=== PATIENT | female | born 1955 | race Caucasian/White ===

== ENCOUNTER 2018-06-23 11:28 | Outpatient (RCR) | payer SELFPAY | END 2018-06-24 23:59 | disposition home or self-care (01) | LOC: CR 11:28 | PROVIDERS: PCP Family Medicine; Visit Provider Family Medicine | DX: Z51.89 Encounter for other specified aftercare (principal) ==

== ENCOUNTER 2018-07-21 09:00 | Outpatient (RCR) | payer SELFPAY | END 2018-07-24 23:59 | disposition home or self-care (01) | LOC: CR 09:00 | PROVIDERS: PCP Family Medicine; Visit Provider Family Medicine | DX: Z51.89 Encounter for other specified aftercare (principal) ==

== ENCOUNTER 2018-08-22 12:00 | Outpatient (CLI) | payer MEDICARE, SELFPAY | END 2018-08-22 12:20 | PROVIDERS: PCP Family Medicine; Visit Provider Internal Medicine Interventional Cardiology | DX: I25.10 Atherosclerotic heart disease of native coronary artery without angina pectoris (principal); I10 Essential (primary) hypertension; E66.9 Obesity, unspecified; G47.33 Obstructive sleep apnea (adult) (pediatric); J44.9 Chronic obstructive pulmonary disease, unspecified; Z87.891 Personal history of nicotine dependence | CPT/HCPCS: 99214 ==

== ENCOUNTER 2018-08-23 09:00 | Outpatient (RCR) | payer SELFPAY | END 2018-08-24 23:59 | disposition home or self-care (01) | LOC: CR 09:00 | PROVIDERS: PCP Family Medicine; Visit Provider Family Medicine | DX: Z51.89 Encounter for other specified aftercare (principal) ==

== ENCOUNTER 2018-09-22 09:00 | Outpatient (RCR) | payer SELFPAY | END 2018-09-23 23:59 | disposition home or self-care (01) | LOC: CR 09:00 | PROVIDERS: PCP Family Medicine; Visit Provider Family Medicine | DX: I25.10 Atherosclerotic heart disease of native coronary artery without angina pectoris (principal); I25.2 Old myocardial infarction; J44.9 Chronic obstructive pulmonary disease, unspecified; Z51.89 Encounter for other specified aftercare ==

== ENCOUNTER 2018-10-20 15:04 | Outpatient (RCR) | payer SELFPAY | END 2018-10-24 23:59 | disposition home or self-care (01) | LOC: CR 15:04 | PROVIDERS: PCP Family Medicine; Visit Provider Family Medicine | DX: I25.10 Atherosclerotic heart disease of native coronary artery without angina pectoris (principal); I25.2 Old myocardial infarction; J44.9 Chronic obstructive pulmonary disease, unspecified; Z51.89 Encounter for other specified aftercare ==

== ENCOUNTER 2018-11-24 09:00 | Outpatient (RCR) | payer SELFPAY | END 2018-11-24 23:59 | disposition home or self-care (01) | LOC: CR 09:00 | PROVIDERS: PCP Family Medicine; Visit Provider Family Medicine | DX: I25.10 Atherosclerotic heart disease of native coronary artery without angina pectoris (principal); I25.2 Old myocardial infarction; J44.9 Chronic obstructive pulmonary disease, unspecified; Z51.89 Encounter for other specified aftercare ==

== ENCOUNTER 2018-12-22 12:52 | Outpatient (RCR) | payer SELFPAY | END 2018-12-22 23:59 | disposition home or self-care (01) | LOC: CR 12:52 | PROVIDERS: PCP Family Medicine; Visit Provider Family Medicine | DX: I25.10 Atherosclerotic heart disease of native coronary artery without angina pectoris (principal); I25.2 Old myocardial infarction; J44.9 Chronic obstructive pulmonary disease, unspecified; Z51.89 Encounter for other specified aftercare ==

== ENCOUNTER 2019-01-19 09:00 | Outpatient (RCR) | payer SELFPAY | END 2019-01-22 23:59 | disposition home or self-care (01) | LOC: CR 09:00 | PROVIDERS: PCP Family Medicine; Visit Provider Family Medicine | DX: I25.10 Atherosclerotic heart disease of native coronary artery without angina pectoris (principal); I25.2 Old myocardial infarction; J44.9 Chronic obstructive pulmonary disease, unspecified; Z51.89 Encounter for other specified aftercare ==

== ENCOUNTER 2019-01-19 10:17 | Outpatient (CLI) | payer MEDICARE, SELFPAY ==
[2019-01-19 11:22] LABS: Glucose 127 mg/dL (70-100)
== END 2019-01-19 10:37 ==
PROVIDERS: PCP Family Medicine; Visit Provider Family Medicine
DX: E74.39 Other disorders of intestinal carbohydrate absorption (principal)
CPT/HCPCS: 36415; 82947

== ENCOUNTER 2019-01-26 01:25 | Outpatient (CLI) | payer MEDICARE, SELFPAY ==
[2019-01-26 10:52] LABS: Hemoglobin A1C 6.1 % (4.5-6.2)
== END 2019-01-26 01:45 ==
PROVIDERS: PCP Family Medicine; Visit Provider Family Medicine
DX: R73.02 Impaired glucose tolerance (oral) (principal); E74.39 Other disorders of intestinal carbohydrate absorption
CPT/HCPCS: 36415; 83036

== ENCOUNTER 2019-02-21 09:00 | Outpatient (RCR) | payer SELFPAY | END 2019-02-21 23:59 | disposition home or self-care (01) | LOC: CR 09:00 | PROVIDERS: PCP Family Medicine; Visit Provider Family Medicine | DX: I25.10 Atherosclerotic heart disease of native coronary artery without angina pectoris (principal); I25.2 Old myocardial infarction; J44.9 Chronic obstructive pulmonary disease, unspecified; Z51.89 Encounter for other specified aftercare ==

== ENCOUNTER 2019-03-02 01:25 | Outpatient (CLI) | payer MEDICARE, SELFPAY ==
--- NOTE | 2019-03-02 13:00 | DI.MAMMO_ITS ---
SYMPTOMS/DIAGNOSIS: SCREENING, Z12.31 MAMMOGRAMS: Mammograms were interpreted according to the usual protocol including computer analysis with CAD system, tomosynthesis and C view imaging. The breasts are of moderate density with fairly symmetrical distribution of fibroglandular tissue. No dominant mass or clumped microcalcification is identified in either breast. Current examination is compared with the previous examinations including February 2018 and there has been no gross interval change in appearance in comparison with the previous studies. CONCLUSION: No specific evidence of malignancy at this time. Routine screening examinations are suggested at yearly intervals in this age group according to the ACS/ACR guidelines. Category 1, breast density category B. MQSA ASSESSMENT OF FINDINGS: Negative. Category 1. Patient will receive a letter notifying them of these results. BI-RADS category B. There are scattered areas of fibroglandular density.
== END 2019-03-02 01:45 ==
PROVIDERS: PCP Family Medicine; Visit Provider Family Medicine
DX: Z12.31 Encounter for screening mammogram for malignant neoplasm of breast (principal)
CPT/HCPCS: 77063; 77067

== ENCOUNTER 2019-03-23 13:32 | Outpatient (RCR) | payer SELFPAY | END 2019-03-24 23:59 | disposition home or self-care (01) | LOC: CR 13:32 | PROVIDERS: PCP Family Medicine; Visit Provider Family Medicine | DX: I25.10 Atherosclerotic heart disease of native coronary artery without angina pectoris (principal); I25.2 Old myocardial infarction; J44.9 Chronic obstructive pulmonary disease, unspecified; Z51.89 Encounter for other specified aftercare ==

== ENCOUNTER 2019-04-20 11:24 | Outpatient (RCR) | payer SELFPAY | END 2019-04-23 23:59 | disposition home or self-care (01) | LOC: CR 11:24 | PROVIDERS: PCP Family Medicine; Visit Provider Family Medicine | DX: I25.10 Atherosclerotic heart disease of native coronary artery without angina pectoris (principal); I25.2 Old myocardial infarction; J44.9 Chronic obstructive pulmonary disease, unspecified; Z51.89 Encounter for other specified aftercare ==

== ENCOUNTER 2019-05-23 13:27 | Outpatient (RCR) | payer SELFPAY | END 2019-05-24 23:59 | disposition home or self-care (01) | LOC: CR 13:27 | PROVIDERS: PCP Family Medicine; Visit Provider Family Medicine | DX: I25.10 Atherosclerotic heart disease of native coronary artery without angina pectoris (principal); I25.2 Old myocardial infarction; J44.9 Chronic obstructive pulmonary disease, unspecified; Z51.89 Encounter for other specified aftercare ==

== ENCOUNTER 2019-06-20 11:43 | Outpatient (RCR) | payer SELFPAY | END 2019-06-24 23:59 | disposition home or self-care (01) | LOC: CR 11:43 | PROVIDERS: PCP Family Medicine; Visit Provider Family Medicine | DX: I25.10 Atherosclerotic heart disease of native coronary artery without angina pectoris (principal); I25.2 Old myocardial infarction; J44.9 Chronic obstructive pulmonary disease, unspecified; Z51.89 Encounter for other specified aftercare ==

== ENCOUNTER 2019-07-18 11:35 | Outpatient (CLI) | payer MEDICARE, SELFPAY ==
[2019-07-18 13:32] LABS: Calculated LDL 64 mg/dL; Cholesterol 125 mg/dL (50-200); HDL Cholesterol 41 mg/dL (40-60); TSH (W/Ref FT4) 2.84 uIU/mL (0.36-3.74); Triglyceride 100 mg/dL (30-150)
== END 2019-07-18 11:55 ==
PROVIDERS: PCP Family Medicine; Visit Provider Family Medicine
DX: I25.10 Atherosclerotic heart disease of native coronary artery without angina pectoris (principal); D64.9 Anemia, unspecified
CPT/HCPCS: 36415; 80061; 84443

== ENCOUNTER 2019-07-20 11:56 | Outpatient (RCR) | payer SELFPAY | END 2019-07-24 23:59 | disposition home or self-care (01) | LOC: CR 11:56 | PROVIDERS: PCP Family Medicine; Visit Provider Family Medicine | DX: I25.10 Atherosclerotic heart disease of native coronary artery without angina pectoris (principal); I25.2 Old myocardial infarction; J44.9 Chronic obstructive pulmonary disease, unspecified; Z51.89 Encounter for other specified aftercare ==

== ENCOUNTER 2019-07-26 10:53 | Outpatient (CLI) | payer MEDICARE, SELFPAY ==
--- NOTE | 2019-07-26 11:00 | DI.RAD_ITS ---
EXAM: XR KNEE RT 4V AP,LAT,SARWAT,PAT INDICATION: KNEE PAIN. COMPARISON: No exams were available for comparison TECHNIQUE: 2D digital imaging was performed. FINDINGS: There is mild periarticular spurring involving all 3 joint spaces. Joints are otherwise well maintai linda. Bones are intact and normally mineralized. There is an enthesophyte at the superior patella. The soft tissues are unremarkable. IMPRESSION: Mild degenerative changes of the right knee.
== END 2019-07-26 11:13 ==
PROVIDERS: PCP Family Medicine; Referring Provider Family Medicine; Visit Provider Student in an Organized Health Care Education/Training Program
DX: M25.561 Pain in right knee (principal); M17.11 Unilateral primary osteoarthritis, right knee
CPT/HCPCS: 99204; 99215; 73564

== ENCOUNTER 2019-08-24 12:00 | Outpatient (RCR) | payer SELFPAY | END 2019-08-24 23:59 | disposition home or self-care (01) | LOC: CR 12:00 | PROVIDERS: PCP Family Medicine; Visit Provider Family Medicine | DX: I25.10 Atherosclerotic heart disease of native coronary artery without angina pectoris (principal); I25.2 Old myocardial infarction; J44.9 Chronic obstructive pulmonary disease, unspecified; Z51.89 Encounter for other specified aftercare ==

== ENCOUNTER → 2019-08-28 10:26 | Outpatient (BNVA) | payer MEDICARE, SELFPAY | PROVIDERS: PCP Family Medicine; Referring Provider Family Medicine; Visit Provider Internal Medicine Cardiovascular Disease | DX: I25.10 Atherosclerotic heart disease of native coronary artery without angina pectoris (principal); I10 Essential (primary) hypertension; Z87.891 Personal history of nicotine dependence | CPT/HCPCS: 99204; 99215 ==

== ENCOUNTER 2019-08-28 16:11 | Outpatient (CLI) | payer MEDICARE, SELFPAY ==
--- NOTE | 2019-08-28 14:45 | DI.RAD_ITS ---
EXAM: XR SHOULDER RT COMPLETE 2+V INDICATION: PAIN,R52. COMPARISON: No exams were available for comparison TECHNIQUE: 2D digital imaging was performed. FINDINGS: There is mild spurring at the AC joint and glenoid. The humeral head appears normally positioned. No tendon or joint space calcifications are seen. IMPRESSION: Mild degenerative changes.
--- NOTE | 2019-08-28 14:45 | DI.RAD_ITS ---
EXAM: XR CERVICAL SPINE COMP 4-5V INDICATION: PAIN,R52. COMPARISON: No exams were available for comparison TECHNIQUE: 2D digital imaging was performed. FINDINGS: C2-3 through C4-5 disc spaces are well maintained. There are endplate osteophytes projecting anterio rly at C4-5. There is mild narrowing of the C5-6 disc, which also shows anteriorly projecting osteop hytes. There is marked narrowing of the C6-7 disc space. Facet degenerative changes are seen throug hout. There is neural foraminal encroachment on the right at C3-4 and C4-5 and multilevel neural for aminal narrowing on the left. The airway is unremarkable. IMPRESSION: Degenerative disc changes and facet degenerative changes cause bilateral neural foraminal narrowing, left greater right.
[2019-08-28 17:19] LABS: ALT 19 U/L (14-59); AST 16 U/L (15-37); Albumin 3.6 g/dL (3.4-5.0); Alkaline Phosphatase 110 U/L (46-116); Anion Gap 7.8 mmol/L (3-11); BUN 11 mg/dL (7-18); Bilirubin, Total 0.2 mg/dL (0.2-1.0); CO2 29.2 mmol/L (21.0-32.0); CREATININE 1.09 mg/dL (0.55-1.02); Calcium 8.2 mg/dL (8.5-10.1); Chloride 104 mmol/L (98-107); Estimated GFR 50.54 (mL/min/1.73m2); Glucose 93 mg/dL (70-100); Potassium 4.5 mmol/L (3.5-5.1); Sodium 141 mmol/L (136-145); Total Protein 6.8 g/dL (6.4-8.2)
[2019-08-28 17:22] LABS: Hemoglobin A1C 6.2 % (4.5-6.2)
[2019-08-31 05:12] LABS: Vitamin D 25 Total 25.4 ng/ml (30-100)
== END 2019-08-28 16:31 ==
PROVIDERS: PCP Family Medicine; Visit Provider Internal Medicine
DX: M54.2 Cervicalgia (principal); M50.322 Other cervical disc degeneration at C5-C6 level; M50.323 Other cervical disc degeneration at C6-C7 level; M47.812 Spondylosis without myelopathy or radiculopathy, cervical region; E11.9 Type 2 diabetes mellitus without complications; R73.9 Hyperglycemia, unspecified; M25.511 Pain in right shoulder; M19.011 Primary osteoarthritis, right shoulder; E83.51 Hypocalcemia
CPT/HCPCS: 36415; 80053; 82306; 99215; 72050; 73030; 83036

== ENCOUNTER → 2019-09-12 12:50 | Outpatient (BNVA) | payer MEDICARE, SELFPAY | PROVIDERS: PCP Family Medicine; Referring Provider Family Medicine; Visit Provider Student in an Organized Health Care Education/Training Program | DX: M25.561 Pain in right knee (principal); M17.11 Unilateral primary osteoarthritis, right knee; R20.0 Anesthesia of skin; R20.2 Paresthesia of skin; M54.2 Cervicalgia | CPT/HCPCS: 99214 ==

== ENCOUNTER 2019-09-19 15:14 | Outpatient (RCR) | payer SELFPAY | END 2019-09-23 23:59 | disposition home or self-care (01) | LOC: CR 15:14 | PROVIDERS: PCP Family Medicine; Visit Provider Family Medicine | DX: I25.10 Atherosclerotic heart disease of native coronary artery without angina pectoris (principal); I25.2 Old myocardial infarction; J44.9 Chronic obstructive pulmonary disease, unspecified; Z51.89 Encounter for other specified aftercare ==

== ENCOUNTER 2019-10-19 09:00 | Outpatient (RCR) | payer SELFPAY | END 2019-10-24 23:59 | disposition home or self-care (01) | LOC: CR 09:00 | PROVIDERS: PCP Family Medicine; Visit Provider Family Medicine | DX: I25.10 Atherosclerotic heart disease of native coronary artery without angina pectoris (principal); I25.2 Old myocardial infarction; J44.9 Chronic obstructive pulmonary disease, unspecified; Z51.89 Encounter for other specified aftercare ==

== ENCOUNTER 2019-11-14 09:00 | Outpatient (RCR) | payer SELFPAY | END 2019-11-24 23:59 | disposition home or self-care (01) | LOC: CR 09:00 | PROVIDERS: PCP Family Medicine; Visit Provider Family Medicine | DX: I25.10 Atherosclerotic heart disease of native coronary artery without angina pectoris (principal); I25.2 Old myocardial infarction; J44.9 Chronic obstructive pulmonary disease, unspecified; Z51.89 Encounter for other specified aftercare ==

== ENCOUNTER 2019-12-21 09:00 | Outpatient (RCR) | payer SELFPAY | END 2019-12-23 23:59 | disposition home or self-care (01) | LOC: CR 09:00 | PROVIDERS: PCP Family Medicine; Visit Provider Family Medicine | DX: I25.10 Atherosclerotic heart disease of native coronary artery without angina pectoris (principal); I25.2 Old myocardial infarction; J44.9 Chronic obstructive pulmonary disease, unspecified; Z51.89 Encounter for other specified aftercare ==

== ENCOUNTER 2020-01-02 09:00 | Outpatient (RCR) | payer SELFPAY | END 2020-01-23 23:59 | disposition home or self-care (01) | LOC: CR 09:00 | PROVIDERS: PCP Family Medicine; Visit Provider Family Medicine | DX: I25.10 Atherosclerotic heart disease of native coronary artery without angina pectoris (principal); I25.2 Old myocardial infarction; J44.9 Chronic obstructive pulmonary disease, unspecified; Z51.89 Encounter for other specified aftercare ==

== ENCOUNTER 2020-07-09 03:33 | Outpatient (CLI) | payer MEDICARE, SELFPAY ==
[2020-07-09 11:52] LABS: Calculated LDL 71 mg/dL (<100); Cholesterol 131 mg/dL (<200); HDL Cholesterol 40 mg/dL (40-60); TSH (W/Ref FT4) 1.93 uIU/mL (0.36-3.74); Triglyceride 103 mg/dL (<150)
== END 2020-07-09 03:53 ==
PROVIDERS: PCP Family Medicine; Visit Provider Family Medicine
DX: E03.9 Hypothyroidism, unspecified (principal); E78.5 Hyperlipidemia, unspecified; R73.9 Hyperglycemia, unspecified; E83.42 Hypomagnesemia
CPT/HCPCS: 36415; 80061; 83036; 83735; 84443

== ENCOUNTER → 2020-09-02 11:10 | Outpatient (BNVA) | payer MEDICARE, SELFPAY | PROVIDERS: PCP Family Medicine; Referring Provider Family Medicine; Visit Provider Internal Medicine Cardiovascular Disease | DX: I25.10 Atherosclerotic heart disease of native coronary artery without angina pectoris (principal); I10 Essential (primary) hypertension; E03.9 Hypothyroidism, unspecified | CPT/HCPCS: 99213 ==

== ENCOUNTER 2021-01-16 10:26 | Outpatient (CLI) | payer MEDICARE, SELFPAY ==
[2021-01-16 12:39] LABS: Hemoglobin A1C 6.1 % (<5.7)
== END 2021-01-16 10:27 | disposition home or self-care (01) ==
LOC: LOS 10:30
PROVIDERS: PCP Family Medicine; Visit Provider Family Medicine
DX: R73.9 Hyperglycemia, unspecified (principal)
CPT/HCPCS: 36415; 83036

== ENCOUNTER 2021-07-31 03:20 | Outpatient (CLI) | payer MEDICARE, SELFPAY ==
[2021-07-31 10:23] LABS: Calculated LDL 70 mg/dL (<100); Cholesterol 130 mg/dL (<200); Estimated GFR 55.47 (mL/min/1.73m2); HDL Cholesterol 43 mg/dL (40-60); Triglyceride 88 mg/dL (<150)
== END 2021-07-31 03:21 | disposition home or self-care (01) ==
LOC: LBO 03:20
PROVIDERS: PCP Family Medicine; Visit Provider Family Medicine
DX: I10 Essential (primary) hypertension; E78.5 Hyperlipidemia, unspecified; R73.9 Hyperglycemia, unspecified
CPT/HCPCS: 36415; 80061; 82565; 83036

== ENCOUNTER → 2021-09-15 13:53 | Outpatient (BNVA) | payer MEDICARE, SELFPAY | PROVIDERS: PCP Family Medicine; Referring Provider Family Medicine; Visit Provider Internal Medicine Cardiovascular Disease | DX: I25.10 Atherosclerotic heart disease of native coronary artery without angina pectoris (principal); I10 Essential (primary) hypertension | CPT/HCPCS: 99213 ==

== ENCOUNTER 2022-04-13 02:38 | Outpatient (CLI) | payer MEDICARE, SELFPAY ==
[2022-04-13 12:12] LABS: TSH (W/Ref FT4) 1.23 uIU/mL (0.36-3.74)
[2022-04-13 13:36] LABS: Hemoglobin A1C 6.1 % (<5.7)
== END 2022-04-13 02:39 | disposition home or self-care (01) ==
LOC: LBO 02:39
PROVIDERS: PCP Family Medicine; Visit Provider Family Medicine
DX: E03.9 Hypothyroidism, unspecified (principal); R73.09 Other abnormal glucose
CPT/HCPCS: 36415; 83036; 84443

== ENCOUNTER → 2022-09-14 14:07 | Outpatient (BNVA) | payer MEDICARE, SELFPAY | PROVIDERS: PCP Family Medicine; Visit Provider Internal Medicine Cardiovascular Disease | DX: I25.2 Old myocardial infarction (principal); Z95.5 Presence of coronary angioplasty implant and graft; Z98.890 Other specified postprocedural states; I25.10 Atherosclerotic heart disease of native coronary artery without angina pectoris; I10 Essential (primary) hypertension | CPT/HCPCS: 99213 ==

== ENCOUNTER 2022-10-20 03:59 | Outpatient (CLI) | payer MEDICARE, SELFPAY ==
[2022-10-20 13:36] LABS: CREATININE 0.9 mg/dL (0.55-1.02); Estimated GFR 69.64 (mL/min/1.73m2); Vitamin B12 335 pg/mL (193-986)
== END 2022-10-20 04:00 | disposition home or self-care (01) ==
LOC: LOS 03:59
PROVIDERS: PCP Family Medicine; Visit Provider Family Medicine
DX: I10 Essential (primary) hypertension (principal); D64.9 Anemia, unspecified
CPT/HCPCS: 36415; 82565; 82607

== ENCOUNTER 2022-10-23 00:21 | Outpatient (CLI) | payer MEDICARE, SELFPAY ==
--- NOTE | 2022-10-23 10:05 | DI.RAD_ITS ---
Exam(s) XR LUMBAR SPINE COMPLETE EXAM: XR LUMBAR SPINE COMPLETE CLINICAL HISTORY: chronic worsening low back pain with some radiculopathy,m54.9. TECHNIQUE: 2D digital imaging was performed. Five views. COMPARISON: CR LUMBAR SPINE COMPLETE from 03/10/2013 CT ABD PELVIS WITH CONTRAST from 12/13/2013 FINDINGS: BONES: No fracture or destructive lesion. Vertebral body heights are maintained. Severe facet hypert rophy identified throughout, greatest at L3-4 and L4-5, causing mild spondylolisthesis. No spondylol ysis. DISKS: Slight disc space narrowing endplate osteophytes at L1-2. Mild disc space narrowing L4-5. Ap parent bony fusion across the L5-S1 disc. SOFT TISSUE: Right upper and lower quadrant surgical clips. IMPRESSION: Severe facet degenerative changes cause mild spondylolisthesis at L3-4 and L4-5. DATA REPOSITORY: RADIATION DOSE DELIVERED:
== END 2022-10-23 00:41 ==
LOC: DI 00:21
PROVIDERS: PCP Family Medicine; Visit Provider Family Medicine
DX: Z98.1 Arthrodesis status; M51.16 Intervertebral disc disorders with radiculopathy, lumbar region; M43.16 Spondylolisthesis, lumbar region
CPT/HCPCS: 72110

== ENCOUNTER 2023-04-20 00:46 | Outpatient (CLI) | payer MEDICARE, SELFPAY ==
--- NOTE | 2023-04-20 08:00 | DI.US_ITS ---
Exam(s) US LOWER EXTREMITY VENOUS RT EXAM: US LOWER EXTREMITY VENOUS RT CLINICAL HISTORY: fall, on Plavix,RT LEG SWELLING, SOFT TISSUE DISORDER, M79.89. TECHNIQUE: Lower extremity venous ultrasound performed using grayscale, color-flow, and spectral Do ppler analysis. COMPARISON: CR XR KNEE RT 3V AP,LAT,SARWAT from 04/20/2023 FINDINGS: The common femoral, femoral and popliteal veins demonstrate normal compressibility, augmentation, and color Doppler. The posterior tibial veins are patent. No saphenous vein thrombosis or other superfi cial venous thrombosis is seen. No hematoma or Soler's cyst is seen. IMPRESSION: Negative lower extremity ultrasound. No evidence of DVT. DATA REPOSITORY:
--- NOTE | 2023-04-20 08:00 | DI.RAD_ITS ---
Exam(s) XR KNEE RT 3V AP,LAT,SARWAT EXAM: XR KNEE RT 3V AP,LAT,SARWAT CLINICAL HISTORY: fall, on Plavix, RT KNEE PAIN, RT LEG SWELLING,M25.561. TECHNIQUE: 2D digital imaging was performed. Three views. COMPARISON: CR XR KNEE RT 4V AP,LAT,SARWAT,PAT from 07/26/2019 FINDINGS: BONES: No acute fracture is present. No bony destructive lesion is seen. Enthesophyte at quadriceps insertion on the patella. JOINTS: Moderate narrowing medial femoral tibial joint space. Mild to moderate periarticular spurrin g throughout. No joint effusion is seen. SOFT TISSUE: Normal. IMPRESSION: Unremar [id number] degenerative changes. DATA REPOSITORY: RADIATION DOSE DELIVERED:
== END 2023-04-20 01:06 ==
LOC: DI 00:46
PROVIDERS: PCP Family Medicine; Visit Provider Nurse Practitioner Family
DX: M79.89 Other specified soft tissue disorders; M17.11 Unilateral primary osteoarthritis, right knee; M25.561 Pain in right knee; W19.XXXA Unspecified fall, initial encounter
CPT/HCPCS: 73562; 93971

== ENCOUNTER 2023-05-05 02:44 | Outpatient (CLI) | payer MEDICARE, SELFPAY ==
[2023-05-05 07:13] LABS: HCT 32.2 % (36.0-46.0); MCHC 34.2 % (32.0-36.0); MCV 91 fL (80-95); MPV 8.2 fL (8.0-11.0); Platelet Count 373 10^3/uL (130-400); RBC 3.55 10^6/uL (3.93-5.22); RDW 12.5 % (11.7-14.6); RDW-SD 41.8 fL; WBC 9.82 10^3/uL (4.4-10.8)
[2023-05-05 07:54] LABS: Anion Gap 6.9 mmol/L (3-11); BUN 8 mg/dL (7-18); CO2 27.1 mmol/L (21.0-32.0); Calcium 8.2 mg/dL (8.5-10.1); Chloride 100 mmol/L (98-107); Estimated GFR 61.36 (mL/min/1.73m2); Glucose 110 mg/dL (74-106); Potassium 4.7 mmol/L (3.5-5.1); Sodium 134 mmol/L (136-145)
[2023-05-05 08:57] LABS: Calculated LDL 47 mg/dL (<100); Cholesterol 107 mg/dL (<200); HDL Cholesterol 50 mg/dL (40-60); Triglyceride 51 mg/dL (<150)
[2023-05-05 09:49] LABS: Lab Add On Test DONE
[2023-05-05 10:35] LABS: Ferritin 56 ng/mL (8-252); Vitamin B12 370 pg/mL (193-986)
[2023-05-05 10:37] LABS: Iron 37 ug/dL (50-170)
== END 2023-05-05 02:45 | disposition home or self-care (01) ==
LOC: LBO 02:44
PROVIDERS: PCP Family Medicine; Visit Provider Family Medicine
DX: R53.83 Other fatigue (principal); E03.9 Hypothyroidism, unspecified; E87.1 Hypo-osmolality and hyponatremia; E78.5 Hyperlipidemia, unspecified; D64.9 Anemia, unspecified
CPT/HCPCS: 36415; 80048; 80061; 85027; 82607; 82728; 83540; 84443

== ENCOUNTER 2023-05-18 01:57 | Outpatient (CLI) | payer MEDICARE, SELFPAY ==
--- NOTE | 2023-05-18 12:40 | DI.MAMMO_ITS ---
Exam(s) MAMMO SCREENING EXAM: MAMMO SCREENING CLINICAL HISTORY: screening,z12.39. TECHNIQUE: Bilateral full field digital CC and MLO mammographic images were obtained with 3D tomosyn thesis and utilizing computer aided detection (CAD). COMPARISON: Prior mammograms were reviewed. FINDINGS: There has been no significant change in the appearance and distribution of the fibroglandular tissue. Benign-appearing nodules in the right breast again noted. Benign-appearing calcifications in the left breast again noted. There are no new spiculated masses nor malignant-appearing microcalcification groups in either breast There is no significant architectural distortion nor skin thickening-retraction. IMPRESSION: No radiographic evidence of malignancy. Stable benign-appearing findings. BI-RADS Category 2 - Benign Findings Breast Density - Category B - Scattered areas of fibroglandular density Breast density Category C or D implies that the patient has dense breast tissue. Dense breast tissue can make it harder to find cancer on a mammogram. Dense breast tissue is also associated with an incr eased risk of breast cancer. This information about the result of the mammogram report was provided to the patient to raise their awareness. Use this report when you speak with the patient about their risks for breast cancer, which includes their family history. At that time, you may recommend additional screening tests (Ultrasoun d or MRI) as these tests may add significant information. A negative radiographic report should not delay biopsy if a dominant or clinically suspicious mass is present. Up to ten percent of cancers are not identified on mammography. A negative report may reinforce clinical impression. Adenosis and dense breasts may obscure an underlying neoplasm. False positive reports average 6 to 10%. Patient will receive a letter notifying them of these results.
== END 2023-05-18 02:17 ==
LOC: DI 01:57
PROVIDERS: PCP Family Medicine; Visit Provider Family Medicine
DX: Z12.31 Encounter for screening mammogram for malignant neoplasm of breast (principal)
CPT/HCPCS: 77063; 77067

== ENCOUNTER → 2023-07-02 00:41 | Outpatient (CLI) | payer MEDICARE, SELFPAY ==
--- NOTE | 2023-07-02 08:05 | DI.MRI_ITS ---
Exam(s) MR LUMBAR SPINE WO EXAM: MR LUMBAR SPINE WO CLINICAL HISTORY: ongoing back pain despite PT for months,spondylolisthesis,m43.10. TECHNIQUE: Multiplanar multisequence MRI of the Lumbar spine was performed. COMPARISON: CT ABD PELVIS WITH CONTRAST from 12/13/2013 CR XR LUMBAR SPINE COMPLETE from 10/23/2022 FINDINGS: Using similar numbering techniques as on the x-ray of the lumbar spine from 10/23/2022. Bones: The last intervertebral disc space is designated the L5/S1 level for the numbering purpose of this examination. There are endplate osteophytes at several levels in the lumbar spine. Alignment is satisfactory. There is a small hemangioma or fatty rest in the L3 vertebral body. Cord: The conus tip ends at the L1 level. It is of normal size and signal intensity. T12-L1: No disc herniations or bulges are present. No central spinal canal or neural foraminal stenos is. L1-2: There is a mild diffuse disc bulge and facet arthropathy. No central spinal canal stenosis. M ild right and moderate left neural foraminal stenosis. L2-3: There is a mild diffuse disc bulge per there are degenerative changes of the facets. There is mild narrowing of the central spinal canal.There is moderate left and mild right neural foraminal isaias nosis. L3-4: There is a mild diffuse disc bulge. There are marked hypertrophic changes of the facets and li gamentum flavum causing moderately severe central spinal canal stenosis. There is moderately severe bilateral neural foraminal stenosis. L4-5: There is mild anterolisthesis of L4 on L5. There are degenerative changes of the facets. No s ignificant disc herniation is seen. There is no significant central spinal canal stenosis. No right neural foraminal stenosis. Mild left neural foraminal stenosis. L5-S1: There is no disc herniation or disc bulge. No significant central spinal canal or neural fora zara stenosis is present. Soft tissues: The visualized SI joints and sacrum are well maintained. The paraspinal soft tissues ar e unremarkable. There is a 3.1 x 3.5 cm well-circumscribed hypointense lesion in the superior pole of the left kidney best appreciated on the coronal views. It does appear at least partially hyperinten se on the T2 weighted images. This likely reflects a cyst. IMPRESSION: 1. Multilevel degenerative changes in the lumbar spine resulting in central spinal canal and neural f oraminal stenosis. The findings are most marked from L2-3 through L4-L5 as described above. 2. 3.1 x 3.5 cm left renal lesion. Follow-up with renal ultrasound is recommended. Unexpected findings DATA REPOSITORY:
== END ==
PROVIDERS: PCP Family Medicine; Visit Provider Family Medicine
DX: M51.36 Other intervertebral disc degeneration, lumbar region (principal); M99.61 Osseous and subluxation stenosis of intervertebral foramina of cervical region
CPT/HCPCS: 72148

== ENCOUNTER → 2023-07-21 01:32 | Outpatient (CLI) | payer MEDICARE, SELFPAY ==
--- NOTE | 2023-07-21 08:00 | DI.US_ITS ---
Exam(s) US RENAL EXAM: US RENAL CLINICAL HISTORY: cystic lesion seen on MRI,cyst lt kidney, n28.1. TECHNIQUE: Newton scale, color and spectral Doppler were used. COMPARISON: CT ABD PELVIS WITH CONTRAST from 12/13/2013 MR MR LUMBAR SPINE WO from 07/02/2023 FINDINGS: Renal size in cm: Right: 8.9. Left: 9.8. Echogenicity: Normal. Hydronephrosis: No. Cyst or mass: There are 2 well-circumscribed homogeneously anechoic lesions in the superior pole of t he left kidney. The largest measures 4.3 x 2.1 x 3.3 cm. The smaller measures 1.7 x 2.2 x 2.4 cm. These correspond to the finding seen on the MRI examination dated 07/02/2023. Nephrolithiasis: No. Other findings: None. Bladder:The urinary bladder was incompletely distended with only 10 cc of fluid present. This limits evaluation. Ureteral jets: Right: Not visualized on this examination. Left: Not visualized on this examination. Prevoid vol:10 cc Postvoid vol:Not obtained on this examination. Renal color flow: Symmetric and within normal limits. IMPRESSION: Simple left renal cysts. No follow-up is recommended. These correspond to the MR finding seen on th e MRI from 07/02/2023. DATA REPOSITORY:
== END ==
PROVIDERS: PCP Family Medicine; Visit Provider Family Medicine
DX: N28.1 Cyst of kidney, acquired (principal)
CPT/HCPCS: 76770

== ENCOUNTER 2023-09-14 07:52 | Outpatient (CLI) | payer MEDICARE, SELFPAY ==
--- NOTE | 2023-09-14 07:45 | RT.EKG_ITS ---
APPROVED REPORT Exam: Resting ECG Reason for Exam: CAD Patient Location: O HR:62 bpm ECG Measurements Heart Rate 62 AXIS MI 163 P 56 QRSd 91 QRS 6 QT 407 T 26 QTc 414 Conclusion Sinus rhythm...normal P axis, V-rate 50- 99 Low voltage, precordial leads...precordial leads <1.0mV Anteroseptal infarct, old...Q >40mS, V1-V2
== END 2023-09-14 07:53 | disposition home or self-care (01) ==
LOC: DI.CARD 07:53
PROVIDERS: PCP Family Medicine; Visit Provider Internal Medicine Cardiovascular Disease
DX: I25.10 Atherosclerotic heart disease of native coronary artery without angina pectoris (principal)
CPT/HCPCS: 93010

== ENCOUNTER → 2023-09-14 13:12 | Outpatient (BNVA) | payer MEDICARE, SELFPAY | PROVIDERS: PCP Family Medicine; Visit Provider Internal Medicine Cardiovascular Disease ==

== ENCOUNTER 2024-01-20 10:45 | Outpatient (CLI) | payer MEDICARE, SELFPAY ==
[2024-01-20 10:53] VITALS: BP 146/103; PULSE 67; RESP 20; TEMP 36.7; O2SAT 93
[2024-01-20 11:44] VITALS: BP 153/99; PULSE 66; RESP 19; O2SAT 96
--- NOTE | 2024-01-20 11:45 | DI.RAD_ITS ---
Exam(s) XR PAIN CLINIC LUMBAR SP 2V EXAM: XR PAIN CLINIC LUMBAR SP 2V CLINICAL HISTORY: DX: Lumbar spondylosis. TECHNIQUE: Fluoroscopy was provided for the referring physician for guidance with performing pain cl inic injection procedure. COMPARISON: No exams were available for comparison FINDINGS: Please see procedure note for details. Fluoro time: 56 seconds RADIATION DOSE DELIVERED: jono Petty=22.26 mGy
[2024-01-20] MEDS: Nerve Block Tray 1 EACH MC (11:47)
[2024-01-20] MEDS: Bupivacaine 0.5% Pres-Free 10 ML VIAL IJ (11:47)
[2024-01-20] MEDS: Omnipaque 240 MG/ML 50 ML BTL IJ (11:47)
--- NOTE | 2024-01-20 12:10 | PDOC.PAIN ---
Date of service: 01/20/24 Time of Service: 12:10 Pain Managment Procedure Note Procedure Note Procedure Note: PROCEDURE NOTE Bilateral Lumbar Medial Branch Blocks Date of Service: January 20, 2024 Patient: Layla Cardoza Provider: Nestor Garcia DO, MPH Laylalaura Cardoza has been referred to the [facility] for lumbar medial branch blocks. Pre-operative diagnosis: Lumbar Spondylosis without Myelopathy Post-operative diagnosis: Same Pre-procedure pain: VAS= 6/10 COMMENTS: I previously evaluated her in the office and her symptoms have not changes. Mackenzie was interviewed and the medical records were reviewed. There were no medical, pharmacologic, radiographic or other structural contraindications to attempting fluoroscopically guided local anesthetic lumbar medial branch blocks. Risks and potential side effects were discussed. I also discussed the potential benefit(s) of the procedure with Layla, and voiced concerns were addressed. After Layla was completely informed about the procedure, the printed consent form was signed. A standard time-out procedure was performed. Layla was placed in the prone position on the fluoroscopy table. Automated blood pressure cuff and pulse oximeter were applied. The skin entry points for approaching the anatomic target points of the segmental medial branches of bilateral L3,L4,L5 were identified with fluoroscopy and marked. The skin at the target site area was thoroughly prepared with Chlorhexadine. The skin was then draped. Next, a 25 gauge 3.5 spinal needle was placed under fluoroscopic guidance down on to the target point (the articular pillar) for each respective segmental medial branch. Position was confirmed in A/P and lateral views. Aspiration revealed no blood or clear fluid. Next, 0.25ml of omnipaque 240 was injected at each level. No contrast following a vascular or neural pattern was visualized under continuous fluoroscopy. Next, 0.25 ml of preservative-free 0.5% bupivicaine was injected at each level. There was no unusual discomfort expressed by Layla. The needles were withdrawn without difficulty. (49 mls of Omnipaque was wasted) Layla was observed and was without hemodynamic, neurologic, or allergic reactions.? Fluoroscopic images were digitally archived. Provacative testing using the Modified Chavez's facet loading test- Left side Right Side Directly before the block VAS (0-10) = 6/10 VAS (0-10) = 6/10 Five minutes after the block VAS (0-10) = 3/10 VAS (0-10) = 3/10 Percentage relief obtained with this diagnostic block 50% 50% Any improved physical functioning directly after the blocks? Able to move her back with ease. Follow up plans and appointments were discussed with Layla. Layla was instructed to keep careful note of how the usual pain was modified by these injections. Specifically, to keep a pain diary for the next 4 hours using a numeric pain scale of 0-10 and report these results. Post procedure instruction was given as documented in the nursing documentation and having met discharge criteria, the patient was discharged from the [facility]. Based on the medial branches blocked today, if they patient has adequate relief and we are able to proceed to radiofrequency ablation, the treatment should result in the denervation of the bilateral L4-L5 and L5-S1 facet joints. We would expect to denervate a total of 4 facets during the radiofrequency ablation. COMMENTS: No apparent complications. Post-procedure pain: VAS= 3/10 Layla will call back with 0-4 hour post-procedure pain scores. I personally performed the entire procedure. NESTOR GARCIA DO, MPH ABPM&R-subspecialty board certification in Pain Medicine [facility] [facility]
== END 2024-01-20 10:46 | disposition home or self-care (01) ==
LOC: PC 10:45
PROVIDERS: PCP Family Medicine; Visit Provider Preventive Medicine Occupational Medicine
DX: M47.816 Spondylosis without myelopathy or radiculopathy, lumbar region (principal); M54.50 Low back pain, unspecified
CPT/HCPCS: 00123; 64493; 64494; 72100; J0665; Q9967

== ENCOUNTER 2024-02-23 15:35 | Outpatient (CLI) | payer MEDICARE, SELFPAY ==
[2024-02-23 15:45] VITALS: BP 132/93; PULSE 60; RESP 20; TEMP 36.2; O2SAT 97
[2024-02-23 16:24] VITALS: PULSE 61; O2SAT 96
[2024-02-23] MEDS: Bupivacaine 0.5% Pres-Free 10 ML VIAL IJ (16:26)
[2024-02-23] MEDS: methylPREDNISolone ACETATE 40 MG/ML VIAL IJ (16:26)
[2024-02-23] MEDS: Nerve Block Tray 1 EACH MC (16:26)
--- NOTE | 2024-02-23 16:30 | PDOC.PAIN_ITS ---
Date of service: 02/23/24 Time of Service: 16:33 US Guided Nerve Blocks Procedure Performed Left Lateral Femoral Cutaneous Nerve Block Pre-Procedural Evaluation No skin abnormalities at the proposed injection site. Referral Patient has been referred to the [facility] for Left Lateral Femoral Cutaneous Nerve Block for a chief complaint of Left anterior thigh pain Pre-Procedural Pain Score 6/10 Reason for Exam Left anterior thigh burning Patient Interview Patient was interviewed and medical record reviewed: Yes There were no contraindications to performing an US guided procedure. Risks,expected side effects, potential benefits were reviewed. The patient consent form was signed and witnessed. Standard time out procedure was performed. Patient Safety No skin abnormalities at the proposed injection site. Procedure Description No sedation given for the procedure Patient was placed in the supine position and the following monitors: Pulse Ox applied. Pre-procedure ultrasound scanning perfomed using a Linear 9 MHz probe Site Preparation Chloroprep Local Anesthesia of Lidocaine 2%. A 21 G 3.5 Pajunk ultrasound needle was placed under live US guidance using an in plane approach to the target area. the following meds: Bupivacaine 0.5% and Depo-Medrol 40mg per cc were used. Total of injectate/medication mixture note: 1 cc of Depomedrol followed by 2 cc of 0.5% Bupivacaine Negative aspiration for blood. Borger were removed without difficulty. Ultrasound images captured and stored. Patient Mental Status Patient was alert during procedure. Vital Signs Vital signs were stable throughout the procedure and recorded by nursing. Follow Up/Discharge Follow up plans and appointments were discussed with patient. Post procedure instruction was given as documented in nursing documentation. Discharge criteria met and discharged from the [facility]agment Center: Yes Post Procedure Post Procedure Pain: 0/10 Patient tolerated procedure well Procedure outcome: Successful Lateral Femoral Cutaneous Nerve Block
== END 2024-02-23 15:36 | disposition home or self-care (01) ==
LOC: PC 15:36
PROVIDERS: PCP Family Medicine; Visit Provider Preventive Medicine Occupational Medicine
DX: G57.12 Meralgia paresthetica, left lower limb (principal)
CPT/HCPCS: 64447; J0665; J1010

== ENCOUNTER 2024-04-11 10:18 | Outpatient (CLI) | payer MEDICARE, SELFPAY ==
[2024-04-11 10:29] VITALS: BP 124/91; PULSE 58; RESP 20; TEMP 36.2; O2SAT 99
[2024-04-11 11:05] VITALS: BP 141/92; PULSE 57; RESP 19; O2SAT 97
--- NOTE | 2024-04-11 11:05 | DI.RAD_ITS ---
Exam(s) XR PAIN CLINIC SACRIOILIAC 2V EXAM: XR PAIN CLINIC SACRIOILIAC 2V CLINICAL HISTORY: DX: Sacroiliac joint dysfunction TECHNIQUE: 2D and realtime digital imaging was performed. Radiologist not present. CONTRAST MATERIAL: None. COMPARISON: No exams were available for comparison FINDINGS: Fluoroscopy was provided for pain management therapy. Sacroiliac injections Please refer to procedure report or details. Radiation Exposure Index: Ka,r=11.98 mGy IMPRESSION: As above. RADIATION DOSE DELIVERED:
[2024-04-11] MEDS: Omnipaque 240 MG/ML 50 ML BTL IJ (11:07)
[2024-04-11] MEDS: Nerve Block Tray 1 EACH MC (11:07)
[2024-04-11] MEDS: methylPREDNISolone ACETATE 80 MG/ML VIAL IJ (11:08)
--- NOTE | 2024-04-11 12:05 | PDOC.PAIN_ITS ---
Date of service: 04/11/24 Time of Service: 11:31 Pain Managment Procedure Note Procedure Note Procedure Note: PROCEDURE NOTE BILATERAL INTRA-ARTICULAR SACROILIAC JOINT INJECTION Date of Service: April 11, 2024 Patient: Layla Cardoza Provider: Kimo Garcia DO, MPH COMMENTS: I previously evaluated the patient in the office and their symptoms in relation to the sacroiliac joint pain have remained the same. Pre-operative diagnosis: Sacroiliac joint dysfunction Post-operative diagnosis: Same Pre-procedure pain: VAS= 4/10 Layla Cardoza has been referred to our [facility] for a Bilateral intra-articular Sacroiliac joint injection. Layla was interviewed and the medical record reviewed. There were no medical, pharmacologic, radiographic or other structural contraindications to attempting a fluoroscopically-guided, contrast-enhanced, intra-articular Sacroiliac joint injection. The risks, benefits, and potential side effects of this procedure were reviewed with the patient. Questions and concerns were addressed. After it was clear that Layla was fully informed about the procedure, the printed consent form was signed by the patient and myself. Layla was placed in the prone position on the fluoroscopy table and an automated blood pressure cuff, 3 lead EKG, and pulse oximeter were applied. The skin entry point for approaching the Left sacroiliac joint was identified under the most advantageous fluoroscopic view and marked. Following thorough Chlorhexadine preparation of the skin and draping with sterile surgical drapes, 2 mls of 1% lidocaine was infiltrated into the skin at the entry point and the surrounding subcutaneous tissues. Next, a 3.5 22G spinal needle was placed under fluoroscopic guidance into the Left sacroiliac joint. Intra-articular placement was confirmed by a clear arthrogram resulting from the injection of 0.25ml of Omnipaque-240. Next, 1 ml of Depo- Medrol 40 mg/ml was injected intra-articularly with an initial reproduction of a significant component of the usual pain. This was followed with 1 ml of 1% Lidocaine. The needle was then removed without difficulty. (49 ml of Omnipaque-240 was wasted). The exact procedure was completed on the opposite sacroiliac joint. Layla's vital signs were stable throughout the procedure and were as recorded in nursing records. Follow up plans and appointments were discussed with Layla. Post procedure instructions were given as documented in nursing records. Having met discharge criteria, Layla was discharged from the [facility]. COMMENTS: Post-procedure pain: VAS= 4/10. If the patient receives at least 50% improvement in pain and/or function for at least 3 months, this procedure can be repeated if needed. I personally performed this entire procedure. KIMO GARCIA DO, MPH ABPMR-subspecialty board certification in Pain Medicine [facility]
== END 2024-04-11 10:19 | disposition home or self-care (01) ==
LOC: PC 10:18
PROVIDERS: PCP Family Medicine; Visit Provider Preventive Medicine Occupational Medicine
DX: M54.50 Low back pain, unspecified (principal); M46.1 Sacroiliitis, not elsewhere classified
CPT/HCPCS: 27096; 72200; J1010; Q9967

== ENCOUNTER 2024-06-05 03:45 | Outpatient (CLI) | payer MEDICARE, SELFPAY ==
[2024-06-05 12:14] LABS: HCT 35.5 % (36.0-46.0); HGB 12.2 g/dL (11.2-15.7); MCHC 34.4 % (32.0-36.0); MCV 90 fL (80-95); MPV 8.1 fL (8.0-11.0); Platelet Count 366 10^3/uL (130-400); RBC 3.94 10^6/uL (3.93-5.22); RDW 11.9 % (11.7-14.6); RDW-SD 39.3 fL; WBC 5.78 10^3/uL (4.4-10.8)
[2024-06-05 13:40] LABS: Iron 75 ug/dL (50-170); Total Iron Binding Capacity 318 ug/dL (250-450); Transferrin Sat 24 % (15-50)
[2024-06-05 14:04] LABS: ALT 23 U/L (14-59); AST 14 U/L (15-37); Albumin 3.9 g/dL (3.4-5.0); Alkaline Phosphatase 84 U/L (46-116); Anion Gap 7.6 mmol/L (3-11); BUN 4 mg/dL (7-18); Bilirubin, Total 0.43 mg/dL (0.2-1.0); CO2 30.4 mmol/L (21.0-32.0); CREATININE 0.8 mg/dL (0.55-1.02); Calcium 8.5 mg/dL (8.5-10.1); Chloride 97 mmol/L (98-107); Estimated GFR 79.71 (mL/min/1.73m2); Glucose 97 mg/dL (74-106); Potassium 4.2 mmol/L (3.5-5.1); Sodium 135 mmol/L (136-145); TSH (W/Ref FT4) 1.49 uIU/mL (0.36-3.74); Total Protein 7.3 g/dL (6.4-8.2); Vitamin B12 688 pg/mL (193-986)
== END 2024-06-05 03:46 | disposition home or self-care (01) ==
LOC: LBO 03:45
PROVIDERS: PCP Family Medicine; Visit Provider Family Medicine
DX: E03.9 Hypothyroidism, unspecified (principal); D64.9 Anemia, unspecified; R10.9 Unspecified abdominal pain; R53.83 Other fatigue
CPT/HCPCS: 36415; 80053; 85027; 82607; 83540; 83550; 84443

== ENCOUNTER 2024-06-08 02:21 | Outpatient (CLI) | payer MEDICARE, SELFPAY ==
--- NOTE | 2024-06-08 11:30 | DI.US_ITS ---
Exam(s) US LOWER EXTREMITY VENOUS LT EXAM: US LOWER EXTREMITY VENOUS LT CLINICAL HISTORY: ? DVT, lt leg swelling, m79.89 TECHNIQUE: Left lower extremity venous ultrasound performed using grayscale, color-flow, and spectra l Doppler analysis. COMPARISON: No exams were available for comparison FINDINGS: The left common femoral, femoral and popliteal veins demonstrate normal compressibility, augmentation , and color Doppler. The proximal posterior tibial veins are patent. The saphenofemoral junction is unremarkable. There is no evidence of a Soler cyst. There is edema seen in the soft tissues of the lower extremity. IMPRESSION: No evidence of a left lower extremity DVT. DATA REPOSITORY:
== END 2024-06-08 02:41 ==
LOC: DI 02:21
PROVIDERS: PCP Family Medicine; Visit Provider Nurse Practitioner Family
DX: M79.89 Other specified soft tissue disorders (principal)
CPT/HCPCS: 93971

== ENCOUNTER 2024-06-15 02:21 | Outpatient (CLI) | payer MEDICARE, SELFPAY ==
--- NOTE | 2024-06-15 12:32 | DI.MAMMO_ITS ---
Exam(s) MAMMO SCREENING EXAM: MAMMO SCREENING CLINICAL HISTORY: screening,z12.39 TECHNIQUE: Mammograms were interpreted according to the usual protocol including computer analysis w [employer] CAD system, tomosynthesis and C-view imaging. COMPARISON: 2014 through 2022 FINDINGS: The breasts are composed of mainly fatty density , Breast Density category A. No suspicious masses or suspicious microcalcifications are seen. Benign-appearing secretory type autumn cifications in the upper outer quadrant of the left breast. No skin thickening or abnormal axillary lymph nodes are seen. There has been no significant change from prior exams. IMPRESSION: BI-RADS Category 2 - Benign Findings Yearly screening mammography is recommended. Breast Density - Category A, fatty density. A negative radiographic report should not delay biopsy if a dominant or clinically suspicious mass is present. Up to ten percent of cancers are not identified on mammography. A negative report may reinforce clinical impression. Adenosis and dense breasts may obscure an underlying neoplasm. False positive reports average 6 to 10%. Patient will receive a letter notifying them of these results.
== END 2024-06-15 02:41 ==
LOC: DI 02:21
PROVIDERS: PCP Family Medicine; Visit Provider Family Medicine
DX: Z12.31 Encounter for screening mammogram for malignant neoplasm of breast (principal)
CPT/HCPCS: 77063; 77067

== ENCOUNTER 2024-06-19 03:28 | Outpatient (CLI) | payer MEDICARE, SELFPAY ==
[2024-06-20 20:11] LABS: Hepatitis C Ab w Rflx HCV PCR Negative (Negative)
== END 2024-06-19 03:29 | disposition home or self-care (01) ==
LOC: LBO 03:29
PROVIDERS: PCP Family Medicine; Visit Provider Family Medicine
DX: Z11.59 Encounter for screening for other viral diseases (principal)
CPT/HCPCS: 36415; 86803

== ENCOUNTER → 2024-09-12 13:20 | Outpatient (BNVA) | payer MEDICARE, SELFPAY | PROVIDERS: PCP Family Medicine; Visit Provider Internal Medicine Cardiovascular Disease | DX: I25.10 Atherosclerotic heart disease of native coronary artery without angina pectoris (principal); I10 Essential (primary) hypertension | CPT/HCPCS: 99213 ==

== ENCOUNTER 2025-05-10 16:14 | Emergency (ER) | payer MEDICARE, SELFPAY ==
--- NOTE | 2025-05-10 16:15 | DI.RAD_ITS ---
Exam(s) XR WRIST RT COMPLETE EXAM: XR WRIST RT COMPLETE CLINICAL HISTORY: fall and pain. TECHNIQUE: 2D digital imaging was performed. COMPARISON: No exams were available for comparison FINDINGS: 3 views There is an acute impacted fracture of the distal radius with some dorsal angulation evident. Fracture appears to violate the radiocarpal joint space. There is also an avulsed fracture of the ulnar styloid. Scaphoid and scapholunate distance are normal. There is no evidence of carpal dislocation. IMPRESSION: Fractures of distal radius and ulnar styloid as described above. DATA REPOSITORY: RADIATION DOSE DELIVERED:
[2025-05-10 16:16] VITALS: BP 158/90; PULSE 75; RESP 18; TEMP 36.4; O2SAT 98
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
[2025-05-10] MEDS: MORPHine 4 MG/ML SYR IM (17:56)
[2025-05-10 18:40] VITALS: PULSE 64; O2SAT 98
[2025-05-10] MEDS: Bupivacaine 0.5% Pres-Free 30 ML VIAL IJ (19:06)
[2025-05-10] MEDS: Lidocaine 2% Multi-Dose 20 ML VIAL IJ (19:06)
--- NOTE | 2025-05-10 19:16 | DI.RAD_ITS ---
Exam(s) XR WRIST RT COMPLETE EXAM: XR WRIST RT COMPLETE CLINICAL HISTORY: Post-Reduction. TECHNIQUE: 2D digital imaging was performed. COMPARISON: No exams were available for comparison FINDINGS: Three in cast post reduction views Performed post closed reduction. Previously described fractures of distal radius and ulnar styloid are again noted. There is now less dorsal angulation at the impacted distal radial fracture site IMPRESSION: Improvement in the amount of dorsal angulation at the distal radius fracture site when compared to pre reduction images. DATA REPOSITORY: RADIATION DOSE DELIVERED:
[2025-05-10] MEDS: traMADol 50 MG TAB 200 MG PO (19:58)
[2025-05-10 20:00] VITALS: BP 135/74; PULSE 64; RESP 15; O2SAT 98
--- NOTE | 2025-05-10 20:32 | DI.VRAD_ITS ---
PROCEDURE INFORMATION: Exam: XR Right Wrist Exam date and time: 05/10/2025 7:09 PM Age: 69 years old Clinical indication: Other: Post-reduction TECHNIQUE: Imaging protocol: Radiologic exam of the right wrist. Views: 3 or more views. COMPARISON: CR XR WRIST RT COMPLETE 05/10/2025 4:40 PM FINDINGS: Bones/joints: There has been mild reduction of the fracture of the distal radius and placement of the patient's wrist in a fiberglass cast. Ulnar styloid fracture is noted again. Soft tissues: Normal. IMPRESSION: As above. Dictated and Authenticated by: Percy Stuart MD. Orderin Samaria Holt MD
== END 2025-05-10 20:00 | disposition home or self-care (01) ==
PROVIDERS: Emergency Provider Emergency Medicine Emergency Medical Services; PCP Family Medicine
DX: S52.591A Other fractures of lower end of right radius, initial encounter for closed fracture (principal); S52.611A Displaced fracture of right ulna styloid process, initial encounter for closed fracture; E03.9 Hypothyroidism, unspecified; I25.10 Atherosclerotic heart disease of native coronary artery without angina pectoris; I25.2 Old myocardial infarction; E78.5 Hyperlipidemia, unspecified; I10 Essential (primary) hypertension; Z79.82 Long term (current) use of aspirin; Z79.02 Long term (current) use of antithrombotics/antiplatelets; Z87.891 Personal history of nicotine dependence; W18.39XA Other fall on same level, initial encounter
CPT/HCPCS: 96372; 99283; 25605; 73110; J0665; J2003; J2270

== ENCOUNTER 2025-05-12 19:46 | Emergency (ER) | payer MEDICARE, SELFPAY ==
[2025-05-12 19:51] VITALS: BP 149/70; PULSE 73; RESP 18; O2SAT 98
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
== END 2025-05-12 20:26 | disposition home or self-care (01) ==
LOC: ER 20:30
PROVIDERS: Emergency Provider Physician Assistant; PCP Family Medicine
DX: M25.531 Pain in right wrist (principal)
CPT/HCPCS: 99283 ×2

== ENCOUNTER 2025-05-16 10:11 | Outpatient (CLI) | payer MEDICARE, SELFPAY ==
--- NOTE | 2025-05-16 09:30 | DI.RAD_ITS ---
Exam(s) XR WRIST RT LIMITED EXAM: XR WRIST RT LIMITED INDICATION: F/U R WRIST FX. COMPARISON: CR,XR XR WRIST RT COMPLETE from 05/10/2025 CR XR WRIST RT COMPLETE from 05/10/2025 TECHNIQUE: 2D digital imaging was performed. Two views. FINDINGS: A cast is in place which partially obscures the bony detail. There has been no change in the alignment of the distal radial and ulnar styloid fractures. DATA REPOSITORY: RADIATION DOSE DELIVERED:
== END 2025-05-16 10:12 | disposition home or self-care (01) ==
LOC: DIORS 10:11
PROVIDERS: PCP Family Medicine; Referring Provider Family Medicine; Visit Provider Student in an Organized Health Care Education/Training Program
DX: S52.611A Displaced fracture of right ulna styloid process, initial encounter for closed fracture (principal); S52.501A Unspecified fracture of the lower end of right radius, initial encounter for closed fracture; W19.XXXA Unspecified fall, initial encounter
CPT/HCPCS: 99214; 73100

== ENCOUNTER 2025-05-22 15:30 | Outpatient (CLI) | payer MEDICARE, SELFPAY ==
--- NOTE | 2025-05-22 13:45 | DI.RAD_ITS ---
Exam(s) XR WRIST RT LIMITED EXAM: XR WRIST RT LIMITED CLINICAL HISTORY: F/U FRACTURE. TECHNIQUE: 2D digital imaging was performed. COMPARISON: CR,XR XR WRIST RT COMPLETE from 05/10/2025 CR XR WRIST RT LIMITED from 05/16/2025 FINDINGS: Two views Cast material is been removed. The fractured distal radius and ulnar styloid are again noted, still visible. Mild dorsal angulation again noted. There is no significant ulnar variance. No scaphoid fracture. No carpal dislocation. IMPRESSION: Stable appearance. No further displacement. DATA REPOSITORY: RADIATION DOSE DELIVERED:
== END 2025-05-22 15:31 | disposition home or self-care (01) ==
PROVIDERS: PCP Family Medicine; Referring Provider Family Medicine; Visit Provider Physician Assistant
DX: S52.501A Unspecified fracture of the lower end of right radius, initial encounter for closed fracture (principal); S52.611A Displaced fracture of right ulna styloid process, initial encounter for closed fracture; X58.XXXD Exposure to other specified factors, subsequent encounter
CPT/HCPCS: 99214; 73100

== ENCOUNTER 2025-05-23 10:48 | Day surgery (SDC) | payer MEDICARE, SELFPAY ==
[2025-05-23] VITALS (18 sets, daily range): BP systolic 126–163; BP diastolic 58–79; PULSE 57–65; RESP 12–23; TEMP 36–36.3; O2SAT 94–100; BMI 38.6
--- NOTE | 2025-05-23 09:27 | W.ANESPRE ---
General Info Date of Service Date Performed: 05/23/25 Height: 5 ft 1.75 in Weight: 95.1 kg Body Mass Index (BMI): 38.6 Surgical Procedure: Operation Date: 05/23/25 13:10 Proposed Procedure Side Surgeon p ORIF R wrist fracture Right Romulo Chavez MD Meds Allergies and Home Medications Allergies Allergy/AdvReac Type Severity Reaction Status Date / Time methohexital Allergy HIVES Verified 05/23/25 11:06 Home Medication ?Medication ?Instructions ?Recorded glucosamine sulfate 500 mg capsule 500 mg PO BID 01/05/13 aspirin 81 mg tablet,delayed 81 mg PO DAILY 12/26/13 release cholecalciferol (vitamin D3) 50 2,000 unit PO DAILY 09/20/19 mcg (2,000 unit) tablet omega 8-lrq-foi-fish oil 60 mg-90 1 cap PO DAILY 08/08/21 mg-500 mg capsule (Fish Oil) magnesium 200 mg tablet 200 mg PO DAILY 11/29/23 duloxetine 30 mg capsule,delayed 30 mg PO DAILY #90 caps 06/13/24 release (Cymbalta) aripiprazole 15 mg tablet 15 mg PO DAILY #90 tabs 10/03/24 mirabegron 50 mg tablet,extended 50 mg PO DAILY #90 tabs 10/03/24 release 24 hr terbinafine HCl 250 mg tablet 250 mg PO DAILY #7 tabs 10/03/24 amlodipine 2.5 mg tablet 5 mg (2 x 2.5 mg) PO DAILY #180 04/03/25 tabs atorvastatin 80 mg tablet 80 mg PO DAILY #90 tabs 04/03/25 clopidogrel 75 mg tablet 75 mg PO DAILY #90 tabs 04/03/25 duloxetine 60 mg capsule,delayed 60 mg PO DAILY #90 caps 04/03/25 release gabapentin 100 mg capsule 100 - 200 mg (1 - 2 x 100 mg) PO 04/03/25 BID #120 caps levothyroxine 75 mcg tablet 75 mcg PO DAILY #90 tabs 04/03/25 metformin 500 mg tablet,extended 500 mg PO DAILY #90 tabs 04/03/25 release 24 hr metoprolol succinate 100 mg 100 mg PO DAILY #90 tabs 04/03/25 tablet,extended release 24 hr pantoprazole 40 mg tablet,delayed 40 mg PO DAILY #90 tabs 04/03/25 release acetaminophen 500 mg tablet 1,000 mg (2 x 500 mg) PO TID #90 05/23/25 tabs ibuprofen 600 mg tablet 600 mg PO TID PRN pain #90 tabs 05/23/25 oxycodone 5 mg tablet 5 mg PO Q4H PRN pain #12 tabs 05/23/25 Current Visit Medications: Current Medications Generic Name Dose Route Start Last Admin Trade Name Darwinq PRN Reason Stop Dose Admin Acetaminophen 1,000 mg 05/23/25 06:00 Acetaminophen 500 Mg Tab PO 05/23/25 23:59 PREOP KEI Celecoxib 400 mg 05/23/25 06:00 Celecoxib 200 Mg Cap PO 05/23/25 23:59 PREOP KEI Ringer's Solution 1,000 mls @ 80 mls/hr 05/23/25 06:00 IV 05/23/25 23:59 INFUSION KEI Cefazolin Sodium/Dextrose 2 gm in 50 mls @ 100 mls/hr 05/23/25 06:00 Ancef Duplex IVPB 05/23/25 23:59 PREOP KEI Tranexamic Acid/Sodium Chloride 1,000 mg in 100 mls @ 600 mls/hr 05/23/25 06:00 IVPB 05/23/25 23:59 PREOP KEI IV Miscellaneous Supplies 1 each 05/23/25 06:00 Iv Access IV 05/23/25 23:59 DIRECTED KEI Sodium Chloride 0 ml 05/23/25 06:00 Normal Saline Flush 10 Ml Syr IV 05/23/25 23:59 PRN PRN Sodium Chloride 0 ml 05/23/25 06:00 Normal Saline 10 Ml Vial IJ 05/23/25 23:59 DIRECTED PRN Sterile Water 0 ml 05/23/25 06:00 Water,Injection,Sterile 10 Ml Vial IJ 05/23/25 23:59 DIRECTED PRN PFSH Active Problems Active Problems: Problem Status Onset Code Fracture of right ulnar styloid Acute S52.611A Distal radius fracture, right Acute S52.501A Postmenopausal Acute Z78.0 Right wrist pain Acute M25.531 Closed fracture distal radius and ulna Acute S52.509A, S52.609A Fracture of right wrist Acute S62.101A Onychomycosis Acute B35.1 Left leg cellulitis Acute L03.116 Left leg swelling Acute M79.89 Sacroiliac joint dysfunction of both sides Acute M53.3 Lateral cutaneous nerve of thigh syndrome Acute G57.10 Lumbosacral spondylosis without myelopathy Acute M47.817 Cyst of left kidney Acute N28.1 Acquired spondylolisthesis Acute M43.10 Acute appendicitis with rupture Acute 12/13/13 K35.2 S/P appendectomy Acute 12/13/13 Z90.49 ASCVD (arteriosclerotic cardiovascular disease) Acute 12/15/13 I25.10 Anemia Acute 01/10/15 D64.9 Arthritis Acute 03/10/13 M19.90 Depressive disorder Acute 12/20/07 F32.9 Hyperlipidemia Acute E78.5 Hypothyroidism Acute 05/23/14 E03.9 Obstructive sleep apnea Acute 09/18/14 G47.33 Sciatica Acute 12/15/13 M54.30 Status post tonsillectomy and adenoidectomy Acute Z90.89 Status post cholecystectomy Acute Z90.49 Impetigo Acute 09/23/02 L01.00 Essential hypertension Acute 12/13/13 I10 Edema Acute R60.9 Diarrhea Acute R19.7 Abnormal glandular Papanicolaou smear of vagina Acute R87.629 Chronic pain of right knee Acute M25.561, G89.29 Arthritis of right knee Acute M17.11 Cervical spine arthritis with nerve pain Acute M47.812, M79.2 Tremor Acute R25.1 Well adult Acute Urge incontinence Acute N39.41 Glucose intolerance Acute E74.39 Low back pain Acute M54.50 COVID-19 Acute ~12/14/ U07.1 Right knee pain Acute M25.561 Right leg swelling Acute M79.89 Medical History Medical History Obesity OR (myocardial infarction) Hypothyroidism ASCVD (arteriosclerotic cardiovascular disease) GISEL (obstructive sleep apnea) Surgical History Surgical History Tonsillectomy and adenoidectomy Abdominal hysterectomy Coronary Stent 2014 Colonoscopy - MAC (03/07/18) Cholecystectomy Appendectomy Tobacco Smoking/Tobacco Use Status: Former Tobacco Use Passive smoking exposure: Yes Second hand exposure: Yes Alcohol Alcohol Intake: current Alcohol intake frequency: holidays/special occasions only Alcohol type: hard liquor Substance Use Substance use: Daily Substance use type: marijuana Details: last smoked on 04/10/24 Anesthesia Assessment and Plan Anesthesia History Personal History: No History of Anesthesia Complications Family History: No Family History of Anesthesia Complications Exercise Tolerance Exercise Tolerance: Metabolic Equivalents>4 Cardiac & Pulmonary Exam Cardiac Exam: Normal S1/S2 Heart Sounds Pulmonary Exam: Clear Bilateral Breath Sounds Implantable Cardiac Device Does patient have a Pacemaker or an ICD?: No Airway Exam Known Difficult Airway: No Mallampati Class: 4 Mouth Opening: Narrow (< 3cm) Thyromental Distance: Less than 3 cm Neck Range of Motion: Limited ROM Neck Circumference: Thick Teeth Condition: Normal Dentition ASA Classification ASA Score: ASA 3 Emergency Case?: No NPO Status NPO Status: NPO Clears >2 hours, Solids >8 hours Anesthesia Plan Resuscitation Status: Full Code Anesthesia Technique: General Anesthesia Airway Planned: LMA Monitors Used: Standard Monitors Preoperative Comments:: 69 yo female with a radius fracture for ORIF. Sig PMHx: HTN (amlodipine, metoprolol), (ASCVD/OR (2014 stents x 2 to LAD, chronic terminal circ occlusion, 70% RCA. Had cardiogenic shock with IABP), GISEL (no CPAP), GERD (pantoprazole), hypothyroid (stable on replacement), former smoker, occ EtOH/cannabis. ECHO (after shock recovery): LVEF 55% (previously 31%) ECG: sinus, old OR. Previous Anes: - colo, prop, natural airway, no issues. Discussed risks, benefits of regional anesthesia. Given tingling in thumb and fingers we will not block.
--- NOTE | 2025-05-23 11:25 | PDOC.DSDIS_ITS ---
Date of service: 05/23/25 Discharge Plan Disposition Patient Disposition: Home Condition: Good Discharge Details Reason For Visit: ORIF R Wrist Attending Provider: Romulo Chavez Primary Care Provider: Jono Ibarra Home Meds and New Rx's Prescriptions: New acetaminophen 500 mg tablet 1,000 mg PO TID Qty: 90 0RF ibuprofen 600 mg tablet 600 mg PO TID PRN (Reason: pain) Qty: 90 0RF oxycodone 5 mg tablet 5 mg PO Q4H MDD 6 tabs PRN (Reason: pain) Qty: 12 0RF Continued omega 2-tqe-lkw-fish oil [Fish Oil] 60-90-500 mg capsule 1 cap PO DAILY amlodipine 2.5 mg tablet 5 mg PO DAILY Qty: 180 3RF Rx Instructions: dose increase 12/15/23 dose reduction due to edema 04/04/24 atorvastatin 80 mg tablet 80 mg PO DAILY Qty: 90 3RF duloxetine 60 mg capsule,delayed release(DR/EC) 60 mg PO DAILY Qty: 90 3RF Rx Instructions: take with a 30 mg each day to equal 90 mg daily clopidogrel 75 mg tablet 75 mg PO DAILY Qty: 90 3RF levothyroxine 75 mcg tablet 75 mcg PO DAILY Qty: 90 3RF metformin 500 mg tablet extended release 24 hr 500 mg PO DAILY Qty: 90 3RF metoprolol succinate 100 mg tablet extended release 24 hr 100 mg PO DAILY Qty: 90 3RF Rx Instructions: dose increase 04/04/24 pantoprazole 40 mg tablet,delayed release (DR/EC) 40 mg PO DAILY Qty: 90 3RF gabapentin 100 mg capsule 100 - 200 mg PO BID Qty: 120 2RF Rx Instructions: dose increase cholecalciferol (vitamin D3) 2,000 unit tablet 2,000 unit PO DAILY duloxetine [Cymbalta] 30 mg capsule,delayed release(DR/EC) 30 mg PO DAILY Qty: 90 3RF Rx Instructions: take with a 60 mg cap daily to equal 90 mg dose each day aripiprazole 15 mg tablet 15 mg PO DAILY Qty: 90 3RF mirabegron 50 mg tablet extended release 24 hr 50 mg PO DAILY Qty: 90 3RF terbinafine HCl 250 mg tablet 250 mg PO DAILY Qty: 7 3RF Rx Instructions: Starter: take for one week every month for 4 months glucosamine sulfate 500 MG capsule 500 mg PO BID aspirin 81 MG tablet,delayed release (DR/EC) 81 mg PO DAILY magnesium 200 mg tablet 200 mg PO DAILY Discontinued ibuprofen 800 mg tablet 800 mg PO TID PRN (Reason: pain) Qty: 90 2RF naproxen 375 mg tablet 375 mg PO BID PRN (Reason: pain) Qty: 60 0RF Discharge Instructions Additional Instructions: Wrist Fracture Fixation Discharge Instructions Activity: You should keep the hand/wrist elevated as much as possible for the first few days. You may use the other fingers as tolerated but avoid trying to do too much too soon. You may perform light activities with the splint in place. Dressing/Cast: Your splint should stay in place at all times. Do NOT get it wet. You may loosen the ROSENDA wrap if you feel it is too tight and then rewrap more loosely. Medications: - You should take Tylenol and Ibuprofen for baseline pain control. - You have been prescribed a stronger pain medication, Oxycodone, for breakthrough pain. - You may apply ice over the wrist, just double bag so it doesn't get wet. Follow-up: 10-14 days Referrals: Romulo Chavez MD [ [facility] STAFF PHYSICIAN, Orthopaedic Surgical] Equipment/Supplies: Splint Activity:: Elevate Remove Dressings/Wound Care:: Do Not Remove Shower/Bathe:: Cover Diet:: As Tolerated Discharge Orders Discharge Orders: Discharge Order (Routine); Ordered 05/23/25 Ordered By: Hank Coker DS: Diagnosis Discharge Diagnosis (1) Fracture of right ulnar styloid: Status: Acute (2) Distal radius fracture, right: Status: Acute
[2025-05-23] MEDS: Acetaminophen 500 MG TAB 1000 MG PO (11:35)
[2025-05-23] MEDS: Celecoxib 200 MG CAP 400 MG PO (11:35)
[2025-05-23] MEDS: Lactated Ringers 1,000 ML 80 ML IV (11:43)
[2025-05-23] MEDS: ceFAZolin 2 GM/50 ML BAG IVPB (12:29)
[2025-05-23] MEDS: TRANEXAMIC ACID/SOD. CHL. 1,000 MG/100 ML BAG 600 MG IVPB (12:43)
[2025-05-23] MEDS: Bupivacaine 0.5% Pres-Free W/EPI 30 ML VIAL (13:05)
--- NOTE | 2025-05-23 13:30 | DI.RAD_ITS ---
Exam(s) XR WRIST RT LIMITED EXAM: XR WRIST RT LIMITED CLINICAL HISTORY: RIGHT DISTAL RADIUS FRACTURE. TECHNIQUE: 2D and realtime digital imaging was performed. COMPARISON: CR XR WRIST RT LIMITED from 05/22/2025 FINDINGS: Hard copy images show placement of a fixation plate along the volar aspect of distal radius for fracture fixation. The alignment is is significantly improved. Please see procedure note for details. Fluoro time: 67seconds RADIATION DOSE DELIVERED: jono Petty=6.18 mGy
[2025-05-23] MEDS: fentaNYL 100 MCG/2 ML VIAL IVP (14:20)
[2025-05-23] MEDS: Normal Saline Flush 10 ML SYR IV (14:21)
--- NOTE | 2025-05-23 14:36 | W.ANESPOSTOP ---
Postoperative Evaluation Date, Time and Location Date Performed: 05/23/25 Time Performed: 14:36 Patient Location: PACU Vital Signs Most Recent Imported Vital Signs: Most Recent Vital Signs Temp Pulse Resp BP Pulse Ox 36.3 C L 63 15 138/62 96 05/23/25 14:33 05/23/25 14:31 05/23/25 14:31 05/23/25 14:31 05/23/25 14:31 Pain Score Most Recent Pain Score: Most Recent Pain Score Pain Level 6 05/23/25 14:33 Assessment Mental Status: Awake (Alert & Oriented to Patient Baseline) Airway and Respiratory Function: Patent airway with normal (patient baseline) respiratory exam Cardiovascular Function: Hemodynamically Stable Hydration Status: Adequately Hydrated Nausea & Vomiting: No Nausea or Vomiting Pain: Pain is tolerable per patient Peripheral Nerve Block: Patient did not receive a nerve block
[2025-05-23] MEDS: oxyCODONE 5 MG TAB PO (15:07)
--- NOTE | 2025-05-23 16:50 | ROE_ITS ---
Operative Note Operative Note PRE-OP DIAGNOSIS: Right distal Radius Fracture POST-OP DIAGNOSIS: same PROCEDURE: Open Reduction and Internal Fixation of Right Distal Radius SURGEON: Romulo Chavez PLATE CORRECTOR: Hank Coker ANESTHESIA TYPE: General LMA/ETT Refer to Anesthesia Record ESTIMATED BLOOD LOSS: 10 PATHOLOGY: none sent COMPLICATIONS: None Patient was transported to: PACU Patient's condition: stable Indications: Layla is a 69-year-old fmxzh-nthy-plrwcnrx female who was treated nonoperatively for distal radius fracture. Unfortunately she has lost reduction and now has a dorsally displaced distal radius fracture of about 40 degrees. I recommended fixation of this fracture given this being her dominant hand and the significant dorsal angulation. I reviewed the risk of the procedure to include bleeding, infection co-pay, stiffness, damage to nerves and vessels, damage to muscles and tendons, malunion, nonunion, hardware prominence, tendon rupture, need for repeat procedures. Despite these risks, the patient elected to proceed. Findings: There is a distal radius fracture which had two epiphyseal fragments. It was reduced and fixed with a Synthes volar locking plate. Procedure Description: Layla was greeted in the preoperative holding area. The correct patient and site was confirmed and marked. The history and physical was updated. The consent was reviewed the patient and signed. The patient was taken to the operating room and placed in the supine position. All bony problems were well- padded. The right arm was placed onto a radiolucent hand table. A nonsterile tourniquet was placed high up on the arm. Prophylactic antibiotics in the form of cefazolin were administered. The left arm was prepped with ChloraPrep and draped in a standard fashion. A timeout was performed for safe surgery. The right arm was then exsanguinated and the tourniquet was inflated to 280 mmHg where it stayed for approximately 45 minutes. A standard longitudinal incision was made overlying the flexor carpi radialis tendon starting at the distal wrist crease and moving proximally. The skin was incised sharply. The flexor carpi radialis tendon and its sheath is identified. The sheath was opened. The tendon was moved ulnarly in the floor of the sheath was incised. Blunt dissection the flexor pollicis longus muscle belly and tendon were also made radially exposing the pronator quadratus and the distal radius. The printer quadratus was elevated with an ulnar-based flap. This exposed the volar distal radius and the fracture. A alexander elevator was used for full exposure of the volar surface of the distal radius. The primary fracture line was exposed. Using a series of elevators, curettes, and knife, the fracture was fully debrided of any fibrous tissue and callus formation. I used a freer elevator to help mobilize the fragments. There is a primary transverse fracture line in the metaphyseal region of the volar distal radius. I then performed a closed reduction. Using gentle traction and fracture manipulation, this reduction was held. Fluoroscopic images were used to confirm adequate reduction. An appropriately sized Synthes volar locking plate was then placed onto the bony surface of the distal radius. Was then held there with a distal radius clamp sandwiching the plate to the distal segment. A single K wire was placed through the distal end. Fluoroscopy was once again used to confirm appropriate positioning of the plate on the distal radius. A reduction K wire was placed into the slotted hole on the shaft but not tightened all the way to allow for manipulation of the distal segment onto the proximal shaft. A single nonlocking screw was placed to the distal portion of the plate securing the plate against the bone of the distal radial metaphysis. Once again, the plate was evaluated to make sure it was aligned appropriately. The single screw was also checked to make sure it was in appropriate positioning for trajectory of future screws. The remainder of the screws within the volar locking plate were filled with locking screws. These were made sure not to penetrate the dorsal cortex. Once these were applied the proximal portion of the plate was further reduced down onto the shaft, which further reduce the distal segment. This was held in position with a tightened reduction K wire. Fluoroscopy was then used against confirm appropriate reduction. Nonlocking screws were placed within the 3 shaft screw holes. Final x-rays were obtained which demonstrated adequate reduction and positioning of hardware. The dorsal sunrise view was also obtained to ensure correct sizing of screws, with the ulnar most distal row screw being replaced. The wound was then thoroughly irrigated. The pronator quadratus was reapproximated with a 2-0 Vicryl. The tourniquet was released and there was no notable vascular injury. The fingers were warm and well-perfused. The deep dermal layer was closed with a 2-0 Vicryl. The skin was closed with 4-0 Monocryl in a buried, running subcuticular pattern. This was reinforced with skin glue. The wound was dressed with Xeroform, 4 x 4's, web roll. A short arm splint was applied. At the end the case all counts are correct. Patient was transferred back to the PACU in stable condition. Date of Procedure: 05/23/25
== END 2025-05-23 16:20 | disposition home or self-care (01) ==
PROVIDERS: PCP Family Medicine; Visit Provider Student in an Organized Health Care Education/Training Program
PROC: (CPT 25607; principal; 2025-05-23 13:00)
DX: S52.501A Unspecified fracture of the lower end of right radius, initial encounter for closed fracture (principal); I25.10 Atherosclerotic heart disease of native coronary artery without angina pectoris; G47.33 Obstructive sleep apnea (adult) (pediatric); E03.9 Hypothyroidism, unspecified; I25.2 Old myocardial infarction; E66.9 Obesity, unspecified; Z68.38 Body mass index [BMI] 38.0-38.9, adult; W19.XXXA Unspecified fall, initial encounter
CPT/HCPCS: 25607; C1889; 76000; 73100; J0690; J1100; J2250; J2371; J2405; J2704; J3010; J3475

== ENCOUNTER 2025-06-04 11:04 | Outpatient (CLI) | payer MEDICARE, SELFPAY ==
--- NOTE | 2025-06-04 10:30 | DI.RAD_ITS ---
Exam(s) XR WRIST RT COMPLETE EXAM: XR WRIST RT COMPLETE CLINICAL HISTORY: S/P ORIF R WRIST. TECHNIQUE: 2D digital imaging was performed. Three images were obtained. PA, lateral and oblique views were obtained. COMPARISON: CR XR WRIST RT LIMITED from 05/16/2025 CR XR WRIST RT LIMITED from 05/22/2025 XA XR WRIST RT LIMITED from 05/23/2025 FINDINGS: BONES: There are stable post operative changes of internal fixation of the distal right radial fracture present. There is stable alignment of the fracture compared to the intraoperative views. There is a stable displaced ulnar styloid process fracture. JOINTS: The joint spaces are well maintained. SOFT TISSUE: Normal. IMPRESSION: Stable postoperative changes. DATA REPOSITORY: RADIATION DOSE DELIVERED:
== END 2025-06-04 11:05 | disposition home or self-care (01) ==
LOC: DIORS 11:04
PROVIDERS: PCP Family Medicine; Referring Provider Family Medicine; Visit Provider Student in an Organized Health Care Education/Training Program
DX: S52.501D Unspecified fracture of the lower end of right radius, subsequent encounter for closed fracture with routine healing (principal); X58.XXXD Exposure to other specified factors, subsequent encounter
CPT/HCPCS: 99024; 73110

== ENCOUNTER 2025-06-28 09:53 | Outpatient (CLI) | payer MEDICARE, SELFPAY ==
--- NOTE | 2025-06-28 06:45 | DI.DEXA_ITS ---
Exam(s) XR DEXA BONE DENSITY W/WO CRISTAL EXAM: XR DEXA BONE DENSITY W/WO CRISTAL CLINICAL HISTORY: Fractures of distal radius and ulnar styloid,POSTMENOPAUSAL,Z78.0 TECHNIQUE: [employer] C densitometer analysis of left hip, lumbar spine and left forearm. Lateral survey image of the thoracic and lumbar spine. COMPARISON: DX DEXA BONE DENSITY WITH CRISTAL from 03/19/2011 FINDINGS: Lateral view of the thoracic and lumbar spine shows no evidence of compression fractures. Bone mineral density measurements of the lumbar spine correspond to a total T- score of 0.7, in the normal range. This represents a 5.2 percent decrease compared to 13/09. Bone mineral density measurements of the left hip correspond to a total T-score of 0.2. The femoral neck T-score is -0.7, in the normal range. This represents a 4.9 percent decrease compared with 2010. Theleft forearm bone mineral density measurements correspond to a T-score of the distal 3rd of -0.8, in the normal range. This corresponds to a 14.8 percent decrease compared with 2010. IMPRESSION: Normal bone mineral density.
== END 2025-06-28 10:13 ==
LOC: DI 09:53
PROVIDERS: PCP Family Medicine; Visit Provider Family Medicine
DX: S52.611D Displaced fracture of right ulna styloid process, subsequent encounter for closed fracture with routine healing (principal); X58.XXXD Exposure to other specified factors, subsequent encounter; Z78.0 Asymptomatic menopausal state
CPT/HCPCS: 77080

== ENCOUNTER 2025-07-02 16:00 | Outpatient (CLI) | payer MEDICARE, SELFPAY ==
--- NOTE | 2025-07-02 10:15 | DI.RAD_ITS ---
Exam(s) XR WRIST RT LIMITED EXAM: XR WRIST RT LIMITED CLINICAL HISTORY: F/U R WRIST S/P ORIF. TECHNIQUE: 2D digital imaging was performed. COMPARISON: CR XR WRIST RT COMPLETE from 06/04/2025 FINDINGS: Two views Again noted is the volar fixation plate at the distal radial fracture site. Appearance is similar to 06/04/2025. Fracture line still evident. No further displacement. No hardware migration. No evidence of osteomyelitis. Avulsed fracture of the ulnar styloid is again noted. IMPRESSION: Stable unchanged appearance when compared to images of 06/04/2025 DATA REPOSITORY: RADIATION DOSE DELIVERED:
== END 2025-07-02 16:01 | disposition home or self-care (01) ==
LOC: DIORS 16:04
PROVIDERS: PCP Family Medicine; Referring Provider Family Medicine; Visit Provider Student in an Organized Health Care Education/Training Program
DX: S52.611D Displaced fracture of right ulna styloid process, subsequent encounter for closed fracture with routine healing (principal); S52.501D Unspecified fracture of the lower end of right radius, subsequent encounter for closed fracture with routine healing; X58.XXXD Exposure to other specified factors, subsequent encounter
CPT/HCPCS: 99024; 73100

== ENCOUNTER 2025-08-13 12:19 | Outpatient (CLI) | payer MEDICARE, SELFPAY ==
--- NOTE | 2025-08-13 10:45 | DI.RAD_ITS ---
Exam(s) XR WRIST RT LIMITED EXAM: XR WRIST RT LIMITED CLINICAL HISTORY: F/U S/P ORIF R WRIST. TECHNIQUE: 2D digital imaging was performed. Two images were obtained. PA and lateral views were obtained. COMPARISON: CR XR WRIST RT LIMITED from 07/02/2025 FINDINGS: BONES: There are stable post operative changes of internal fixation of the distal right radial fracture present. No new fracture or dislocation. There is a stable displaced ulnar styloid process fracture JOINTS: The joint spaces are well maintained. SOFT TISSUE: Normal. IMPRESSION: Stable postoperative changes. DATA REPOSITORY: RADIATION DOSE DELIVERED:
== END 2025-08-13 12:20 | disposition home or self-care (01) ==
LOC: DIORS 12:19
PROVIDERS: PCP Family Medicine; Referring Provider Family Medicine; Visit Provider Physician Assistant
DX: S52.501D Unspecified fracture of the lower end of right radius, subsequent encounter for closed fracture with routine healing (principal); X58.XXXD Exposure to other specified factors, subsequent encounter
CPT/HCPCS: 99024; 73100

== ENCOUNTER 2025-09-14 13:27 | Outpatient (CLI) | payer MEDICARE, SELFPAY ==
--- NOTE | 2025-09-14 13:30 | RT.EKG_ITS ---
APPROVED REPORT Exam: Resting ECG Reason for Exam: follow up needed Patient Location: O HR:64 bpm ECG Measurements Heart Rate 64 AXIS DE 158 P 54 QRSd 114 QRS -13 QT 417 T -19 QTc 431 Conclusion Sinus rhythm...normal P axis, V-rate 50- 99 Probable left atrial enlargement...P >50mS, <-0.10mV V1 Left ventricular hypertrophy...multiple LVH criteria Anterior infarct, old...Q >40mS, abnormal ST-T, V2-V5
== END 2025-09-14 13:28 | disposition home or self-care (01) ==
LOC: DI.CARD 13:38
PROVIDERS: PCP Family Medicine; Visit Provider Internal Medicine Cardiovascular Disease
DX: I25.10 Atherosclerotic heart disease of native coronary artery without angina pectoris (principal); I51.7 Cardiomegaly
CPT/HCPCS: 93010

== ENCOUNTER → 2025-09-14 13:27 | Outpatient (BNVA) | payer MEDICARE, SELFPAY | PROVIDERS: PCP Family Medicine; Referring Provider Family Medicine; Visit Provider Internal Medicine Cardiovascular Disease | DX: I25.10 Atherosclerotic heart disease of native coronary artery without angina pectoris (principal); R60.0 Localized edema | CPT/HCPCS: 93005; 99213 ==

== ENCOUNTER 2025-10-02 01:24 | Outpatient (CLI) | payer MEDICARE, SELFPAY ==
[2025-10-02 09:50] LABS: Hemoglobin A1C 5.8 % (<5.7)
[2025-10-02 09:57] LABS: Anion Gap 7.9 mmol/L (3-11); BUN 13 mg/dL (9-23); CO2 29.2 mmol/L (20.0-31.0); Calcium 8.9 mg/dL (8.3-10.6); Chloride 99 mmol/L (98-107); Cholesterol 120 mg/dL (<200); Glucose 107 mg/dL (74-106); HDL Cholesterol 59 mg/dL (>40); Potassium 4.4 mmol/L (3.5-5.1); Sodium 136 mmol/L (136-145)
[2025-10-02 09:59] LABS: TSH (W/Ref FT4) 1.86 uIU/mL (0.55-4.78)
== END 2025-10-02 01:25 | disposition home or self-care (01) ==
LOC: LBO 01:24
PROVIDERS: PCP Family Medicine; Visit Provider Family Medicine
DX: E03.9 Hypothyroidism, unspecified (principal); R73.9 Hyperglycemia, unspecified; E78.5 Hyperlipidemia, unspecified; Z13.220 Encounter for screening for lipoid disorders; E87.1 Hypo-osmolality and hyponatremia
CPT/HCPCS: 36415; 80048; 80061; 83036; 84443